=== PATIENT | female | born 1950 | race American Indian/Alaskan Native ===

== ENCOUNTER 2019-04-29 08:58 | Emergency (ER) | payer MEDICARE ==
[2019-04-29 09:35] LABS: Basophils % (Auto) 0.3 % (0.0-1.8); Eosinophils % (Auto) 0.4 % (0.0-4.3); Hematocrit 33.3 % (30.3-42.9); Hemoglobin 10.7 gm/dl (10.1-14.3); Lymphocytes % (Auto) 12.7 % (13.4-35.0); Mean Corpuscular HGB Conc 32 % (30-34); Mean Corpuscular Volume 82 fl (79-97); Monocytes # (Auto) 0.4 K/mm3 (0.0-0.8); Monocytes % (Auto) 5.4 % (0.0-7.3); Platelet Count 308 K/mm3 (140-440); Red Blood Count 4.09 M/mm3 (3.65-5.03); Red Cell Distribution Width 17.1 % (13.2-15.2)
--- NOTE | 2019-04-29 09:40 | Emergency Department Report ---
ED Abdominal Pain HPI - General Chief Complaint: Abdominal Pain Stated Complaint: ABD PAIN/VOMITING Time Seen by Provider: 04/29/19 09:35 Source: patient Mode of arrival: Ambulatory Limitations: No Limitations - History of Present Illness Initial Comments: This is a 69-year-old female who presents to ED complaining of lower pelvic pain to lower abdominal pain started last night. Patient states this morning pain is worse. She describes a sharp localized to the lower knee region. She admits some nausea with no vomiting Patient denies diarrhea, dysuria, fever or vaginal bleeding, chest pain shortness of breath. MD Complaint: abdominal pain Severity scale (0 -10): 9 Quality: stabbing, aching, sharp Improves With: nothing - Related Data Previous Rx's Medication Instructions Recorded Last Taken Type traMADol [Ultram 50 MG tab] 50 mg PO Q6HR PRN #20 tablet 04/29/19 Unknown Rx Allergies Allergy/AdvReac Type Severity Reaction Status Date / Time No Known Allergies Allergy Verified 04/29/19 09:00 ED Review of Systems ROS: Stated complaint: ABD PAIN/VOMITING Other details as noted in HPI Comment: All other systems reviewed and negative ED Past Medical Hx - Past Medical History Previous Medical History?: Yes Hx Hypertension: Yes - Surgical History Past Surgical History?: Yes Additional Surgical History: colon surgery appendectomy - Social History Smoking Status: Never Smoker Substance Use Type: None - Medications Home Medications: Home Medications Medication Instructions Recorded Confirmed Last Taken Type traMADol [Ultram 50 MG tab] 50 mg PO Q6HR PRN #20 tablet 04/29/19 Unknown Rx ED Physical Exam - General Limitations: No Limitations General appearance: alert, in no apparent distress - Head Head exam: Present: atraumatic, normocephalic - Eye Eye exam: Present: normal appearance - ENT ENT exam: Present: mucous membranes moist - Neck Neck exam: Present: normal inspection - Respiratory Respiratory exam: Present: normal lung sounds bilaterally. Absent: respiratory distress - Cardiovascular Cardiovascular Exam: Present: regular rate, normal rhythm. Absent: systolic murmur, diastolic murmur, rubs, gallop - GI/Abdominal GI/Abdominal exam: Present: soft, normal bowel sounds, other (well rounded obese abdomen). Absent: distended, tenderness, guarding, rebound, mass - Extremities Exam Extremities exam: Present: normal inspection - Back Exam Back exam: Present: normal inspection, full ROM. Absent: tenderness, CVA tenderness (R), CVA tenderness (L) - Neurological Exam Neurological exam: Present: alert, oriented X3, normal gait - Psychiatric Psychiatric exam: Present: normal affect, normal mood - Skin Skin exam: Present: warm, dry, intact, normal color. Absent: rash ED Course Vital Signs 04/29/19 04/29/19 04/29/19 09:00 11:35 14:30 Temperature 99.1 F 98.5 F Pulse Rate 113 H 87 82 Respiratory 24 22 16 Rate Blood Pressure 169/96 Blood Pressure 134/80 [Right] O2 Sat by Pulse 100 100 98 Oximetry - Consultations Consultation #1: Patient is laying comfortably in the ED. Patient reports feeling much better. Patient ascending no acute distress. Vomiting is resolved. Ultrasound pending 04/29/19 14:05 ED Medical Decision Making - Lab Data Result diagrams: 04/29/19 09:14 04/29/19 09:14 - Radiology Data Radiology results: report reviewed, image reviewed TECHNIQUE: Routine abdominal and pelvic CT exam performed without contrast. Lack of intravenous contrast limits evaluation of the vascular and solid organs.. All CT scans at this location are performed using CT dose reduction for ALARA by means of automated exposure control. FINDINGS: CT ABDOMEN: Lung Bases: No significant abnormality. Liver: No significant abnormality. Biliary: Gallbladder is surgically absent. Spleen: No significant abnormality. Unenlarged. Pancreas: No significant abnormality. Adrenals: No significant abnormality. Kidneys: No significant abnormality. Lymphatics: No lymphadenopathy. Vasculature: No significant abnormality. Bowel/Peritoneum: Nonobstructive bowel. Sigmoid diverticulosis without mesocolonic fat stranding. No free air. No free fluid. The appendix is surgically absent. CT PELVIC: : There is a complex pelvic mass think is most likely arising from the right ovary based on the position of the ovarian vessels. There appear to be both cystic and solid components. This measures 22 x 12.5 cm in greatest axial dimension. Lymphatics: No lymphadenopathy. Osseous Structures: No aggressive appearing osseous lesions. Additional Findings: None IMPRESSION: 1. Large midline complex pelvic mass there appears to be potentially arising from the right ovary. This would raise concern for a primary ovarian neoplasm. I would recommend further characterization with pelvic ultrasound to evaluate for any internal solid components and internal vascularity. 2. Sigmoid diverticulosis without evidence of diverticulitis. Signer Name: Ramesh Avelar MD Signed: 04/29/2019 11:02 AM Workstation Name: [id number] Transcribed By: RADHA Dictated By: Ramesh Avelar MD Electronically Authenticated By: Ramesh Avelar MD Signed Date/Time: 04/29/19 1102 - Medical Decision Making 69-year-old female presents to ED with an ovarian mass causing low pelvic pain. Patient received a liter of fluid, morphine, nausea medications while she was in in the ED. CBC, CMP, urinalysis is obtained. All labs within normal limits no signs of leukocytosis kidney functions are normal. CT scan of the abdomen shows a mass in the pelvic region and ultrasound was recommended. Ultrasound obtained. Ultrasound shows 19 cm ovarian mass, see report above. Patient reports feeling better and is sitting comfortably in the ED bed. Discussed the patient to follow-up with her [facility] doctor. Patient states she does have a [employer] doctor. I have also given patient's referral for [facility] [facility] doctor as well. Patient states understanding instructions and will follow-up. Critical care attestation.: If time is entered above; I have spent that time in minutes in the direct care of this critically ill patient, excluding procedure time. ED Disposition Clinical Impression: Ovarian mass Disposition: DC-01 TO HOME OR SELFCARE Is pt being admited?: No Does the pt Need Aspirin: No Condition: Stable Instructions: Abdominal Pain (ED), Ovarian Cyst (ED) Additional Instructions: Make sure to follow up with the [facility] as discussed. You have also been given a referral for an oncologist please follow up with them. Take all your medications as you've been prescribed. If you have any worsening symptoms or develop new symptoms please return to ED immediately. Prescriptions: traMADol [Ultram 50 MG tab] 50 mg PO Q6HR PRN #20 tablet PRN Reason: Pain Referrals: GILL JENKINS MD [Primary Care Provider] - 3-5 Days [facility] [Provider Group] - 3-5 Days [facility] [Provider Group] - 3-5 Days Forms: Accompanied Note, Work/School Release Form(ED) Time of Disposition: 15:31
[2019-04-29 09:59] LABS: Alanine Aminotransferase 7 units/L (7-56); BUN/Creatinine Ratio 12; Blood Urea Nitrogen 12 mg/dL (7-17); Calcium 9.1 mg/dL (8.4-10.2); Hemolysis Index 7
[2019-04-29] MEDS ORDERED: PEPCID IV ONE (10:07)
[2019-04-29] MEDS ORDERED: ZOFRAN IV ONE (10:07)
[2019-04-29 10:12] LABS: Bacteria,Urine 1+ /HPF (Negative); Bilirubin,Urine NEG (Negative); Blood,Urine NEG (Negative); Color,Urine Amber (Yellow); Mucus,Urine 1+ /HPF
--- NOTE | 2019-04-29 11:07 | Cat Scan Report ---
CT ABDOMEN AND PELVIS WITHOUT CONTRAST HISTORY: Lower abdominal pain with nausea and vomiting. COMPARISON: None TECHNIQUE: Routine abdominal and pelvic CT exam performed without contrast. Lack of intravenous cont rast limits evaluation of the vascular and solid organs.. All CT scans at this location are performed using CT dose reduction for ALARA by means of automated exposure control. FINDINGS: CT ABDOMEN: Lung Bases: No significant abnormality. Liver: No significant abnormality. Biliary: Gallbladder is surgically absent. Spleen: No significant abnormality. Unenlarged. Pancreas: No significant abnormality. Adrenals: No significant abnormality. Kidneys: No significant abnormality. Lymphatics: No lymphadenopathy. Vasculature: No significant abnormality. Bowel/Peritoneum: Nonobstructive bowel. Sigmoid diverticulosis without mesocolonic fat stranding. No free air. No free fluid. The appendix is surgically absent. CT PELVIC: : There is a complex pelvic mass think is most likely arising from the right ovary based on the pos ition of the ovarian vessels. There appear to be both cystic and solid components. This measures 22 x 12.5 cm in greatest axial dimension. Lymphatics: No lymphadenopathy. Osseous Structures: No aggressive appearing osseous lesions. Additional Findings: None IMPRESSION: 1. Large midline complex pelvic mass there appears to be potentially arising from the right ovary. Th is would raise concern for a primary ovarian neoplasm. I would recommend further characterization wit h pelvic ultrasound to evaluate for any internal solid components and internal vascularity. 2. Sigmoid diverticulosis without evidence of diverticulitis. Signer Name: Ramesh Avelar MD Signed: 04/29/2019 11:02 AM Workstation Name: [id number]
[2019-04-29] MEDS ORDERED: MORPHINE IV ONE (11:26)
[2019-04-29 15:55] VITALS: BP 157/86
--- NOTE | 2019-05-01 08:55 | Ultrasound Report ---
Pelvic ultrasound INDICATION: Lower abdominal pain, nausea, vomiting, large pelvic mass on CT today COMPARISON: CT abdomen and pelvis today Transabdominal and endovaginal studies were performed. Uterus is been removed. The large complex mass in the midline of the pelvis seen on CT is identified. The size of this mass makes measurement difficult but appears to measure approximately 19 cm in katherine th. A mixture of echogenicity is seen throughout this complex mass with cystic and solid-appearing co mponents. Only a small amount of blood flow is seen in some areas. No normal ovary is identified. No free fluid is seen. IMPRESSION: The large pelvic mass seen on CT remains likely a right ovarian mass but this cannot be c onfirmed sonographically. Normal ovaries cannot be identified to assist in that determination. This m ass is of significant concern for ovarian carcinoma though could be a large cystadenoma or other grace gn mass. Ultimately surgical intervention would be needed in further determination. Signer Name: Luis Berger MD Signed: 04/29/2019 1:25 PM Workstation Name: [id number]
== END 2019-04-29 15:58 | disposition home or self-care (01) ==
LOC: ED 08:58
DX: N83.209 Unspecified ovarian cyst, unspecified side (principal); I10 Essential (primary) hypertension; Z90.49 Acquired absence of other specified parts of digestive tract; Z79.899 Other long term (current) drug therapy
CPT/HCPCS: 36415; 74176; 76830; 76856; 80053; 81001; 85025; 93005; 93010; 96374; 96375; 99284; J2270; J2405

== ENCOUNTER 2020-01-08 10:18 | Emergency (ER) | payer MEDICARE ==
[2020-01-08] MEDS ORDERED: cloNIDine 0.2 MG TAB PO ONE (10:58)
[2020-01-08] MEDS ORDERED: HYDROcodone/ACETAMINOPHEN 5-325 MG TAB PO ONE (10:58)
--- NOTE | 2020-01-08 11:28 | XRay Report ---
CERVICAL SPINE 4 VIEWS INDICATION: Acute neck pain. COMPARISON: No relevant prior imaging study available. FINDINGS: VERTEBRAE: No acute fracture. Normal alignment. DISC SPACES: Mild discogenic degenerative changes are noted at C6-C7. No additional significant abnor mality. FACET JOINTS: No significant abnormality. SOFT TISSUES: No significant abnormality. ADDITIONAL FINDINGS: Surgical clips are seen along the base of the neck to the left of midline. IMPRESSION: 1. No acute findings. 2. Mild cervical spondylosis. Signer Name: Doron Bean MD Signed: 01/08/2020 11:24 AM Workstation Name: [id number]
--- NOTE | 2020-01-08 12:04 | Emergency Department Report ---
ED Neck Pain HPI Chief Complaint: Neck Pain/Injury Stated Complaint: NECK PAIN Time Seen by Provider: 01/08/20 10:58 Duration: 3 Days Neck Pain Location: Posterior Neck, Lateral Neck Severity: moderate Mechanism: Unsure (Patient states that she woke up with pain is having difficulty moving her head from side to side) Symptoms: Yes Pain with Movement, No Radiation to Left Upper Ext, No Radiation to Right Upper Ext, No Numbness, No Weakness, No Previous History Other History: Patient also states she did not take her blood pressure medicines this morning. She denies any shortness of breath chest pain decreased ability to move her arms or legs or any difficulty with speaking ED Review of Systems ROS: Stated complaint: NECK PAIN Other details as noted in HPI Comment: All other systems reviewed and negative ED Past Medical Hx - Past Medical History Hx Hypertension: Yes - Surgical History Hx Cholecystectomy: Yes Additional Surgical History: colon surgery appendectomy total hysterectomy - Social History Smoking Status: Never Smoker Substance Use Type: None - Medications Home Medications: Home Medications Medication Instructions Recorded Confirmed Last Taken Type traMADoL [Ultram 50 MG tab] 50 mg PO Q6HR PRN #20 tablet 04/29/19 Unknown Rx HYDROcodone/APAP 5-325 [[place] 1 each PO Q6HR PRN #10 tablet 01/08/20 Unknown Rx 5/325] Ibuprofen [Motrin 600 MG tab] 600 mg PO Q8H PRN #14 tablet 01/08/20 Unknown Rx methOCARBAMOL [Robaxin TAB] 500 mg PO Q6H PRN #14 tablet 01/08/20 Unknown Rx Neck Pain Exam - Exam General: Vital signs noted. No distress. Alert and acting appropriately. HEENT: No Facial Pain, No Scalp Tenderness, No Contusion, No Abrasion, No Laceration Neck Pain: Yes Midline Tenderness, Yes Right Paraspinal Tenderness, Yes Left Paraspinal Tenderness, Yes Pain with Rotation Right, Yes Pain with Rotation Left, No Right Trapezius Tenderness, No Left Trapezius Tenderness, No Pain with Extension, No Pain with Flexion, No pain with R Lateral Flexion, No Pain with L Lateral Flexion Chest: Yes Clear Lung Sounds, No Pain with Respirations Heart: Yes Regular, No Murmur Back: No Thoracic Tenderness, No Lumbar Tenderness Neuro: No Numbness, No Weakness, No Normal Reflexes, No Radicular Deficits ED Course Vital Signs 01/08/20 01/08/20 01/08/20 10:23 11:00 11:15 Temperature 97.6 F Pulse Rate 92 H 79 Respiratory 18 16 Rate Blood Pressure 231/99 187/86 180/80 O2 Sat by Pulse 98 98 Oximetry ED Medical Decision Making - Radiology Data CERVICAL SPINE 4 VIEWS INDICATION: Acute neck pain. COMPARISON: No relevant prior imaging study available. FINDINGS: VERTEBRAE: No acute fracture. Normal alignment. DISC SPACES: Mild discogenic degenerative changes are noted at C6-C7. No additional significant abnormality. FACET JOINTS: No significant abnormality. SOFT TISSUES: No significant abnormality. ADDITIONAL FINDINGS: Surgical clips are seen along the base of the neck to the left of midline. IMPRESSION: 1. No acute findings. 2. Mild cervical spondylosis. Signer Name: Doron Bean MD Signed: 01/08/2020 11:24 AM Workstation Name: [id number] - Medical Decision Making Regarding the patient's blood pressure the patient states she did not take her medicines this morning and she also has a great deal of pain. Patient was given Catapres and her blood pressure is improving. Patient can continue with her normal regimen at home. Patient was given medication for symptom relief. X- rays do show some mild arthritic changes. Patient likely with torticollis secondary to arthritis. Patient will be discharged home with medication for symptomatic relief. Critical care attestation.: If time is entered above; I have spent that time in minutes in the direct care of this critically ill patient, excluding procedure time. ED Disposition Clinical Impression: Torticollis, acute, Hypertensive urgency Disposition: DC-01 TO HOME OR SELFCARE Is pt being admited?: No Does the pt Need Aspirin: No Condition: Stable Instructions: Hypertension (ED), Spasmodic Torticollis (ED) Referrals: ROSANNE FANG MD [Primary Care Provider] - 3-5 Days Time of Disposition: 12:06
[2020-01-08 12:07] VITALS: BP 171/81
== END 2020-01-08 12:13 | disposition home or self-care (01) ==
LOC: ED 10:18
DX: M43.6 Torticollis (principal); I16.0 Hypertensive urgency; I10 Essential (primary) hypertension
CPT/HCPCS: 72040; 99283

== ENCOUNTER 2021-01-25 21:26 | Emergency (ER) | payer MEDICARE ==
[2021-01-25] MEDS ORDERED: ASPIRIN 81 MG TAB CHEW PO ONE (22:41)
--- NOTE | 2021-01-25 22:44 | Event Note ---
ED Screening Note Date of service: 01/25/21 Time: 22:42 ED Screening Note: 71-year-old female patient with history of hypertension and ovarian cancer (in remission) presents to the emergency department with complaints of nontraumatic right-sided neck pain radiating down her right upper extremity starting today. No history of similar symptoms. No preceding fall or injury. No known history of coronary artery disease. General: Awake, appropriately interactive. Appears anxious and uncomfortable. Neck: Supple. Full range of motion intact. Cardiovascular: Regular rate and rhythm. Normal peripheral perfusion. Pulmonary: Patient is hyperventilating. Lungs clear to auscultation. No resp iratory distress. Patient is speaking normally without use of accessory muscles. Skin: No apparent rashes or lesions. Neurological: No facial asymmetry. Speech is clear. Follows commands. Patient is alert and oriented. Musculoskeletal: Moves all four extremities spontaneously with normal range of motion. Psych: Cooperative. Appropriate mood and affect. Cardiac work-up initiated. Patient reports history of cancer, although her vital signs are stable; decision to pursue further venous thromboembolism work- up deferred to additional ED providers. I have greeted and performed a focused rapid initial assessment of this patient. A comprehensive ED assessment and evaluation of the patient, analysis of all test results, and completion of the medical decision-making process will be conducted by additional ED providers. This initial assessment/diagnostic orders/clinical plan/treatment(s) is/are subject to change based on patients health status, clinical progression and re-assessment. Further treatment and workup at subsequent clinical provider's discretion. Patient/guardian urged not to elope from the ED as their condition may be serious if not clinically assessed and managed.
[2021-01-25 23:14] LABS: Basophils # (Auto) 0.1 K/mm3 (0.0-0.1); Basophils % (Auto) 0.6 % (0.0-1.8); Eosinophils # (Auto) 0.2 K/mm3 (0.0-0.4); Eosinophils % (Auto) 1.7 % (0.0-4.3); Hematocrit 43.2 % (30.3-42.9); Hemoglobin 14.3 gm/dl (10.1-14.3); Lymphocytes # (Auto) 1.1 K/mm3 (1.2-5.4); Lymphocytes % (Auto) 11.7 % (13.4-35.0); Mean Corpuscular HGB Conc 33 % (30-34); Mean Corpuscular Volume 86 fl (79-97); Monocytes # (Auto) 0.6 K/mm3 (0.0-0.8); Monocytes % (Auto) 6.8 % (0.0-7.3); Platelet Count 264 K/mm3 (140-440); Red Cell Distribution Width 14.8 % (13.2-15.2)
[2021-01-25 23:25] LABS: INR 0.92 (0.87-1.13)
--- NOTE | 2021-01-25 23:25 | XRay Report ---
CHEST 2 VIEWS INDICATION: SOB. COMPARISON: None FINDINGS: SUPPORT DEVICES: None. HEART: Within normal limits. LUNGS/PLEURA: Mild hazy medial right basilar airspace disease with otherwise clear lungs. No pneumot horax. ADDITIONAL FINDINGS: None. IMPRESSION: 1. Pulmonary findings as above. Signer Name: Tarun Cunningham MD Signed: 01/25/2021 11:21 PM Workstation Name: [id number]
[2021-01-25 23:26] LABS: Partial Thromboplastin Time 29.5 Sec. (24.2-36.6)
[2021-01-25 23:37] LABS: Alanine Aminotransferase 11 units/L (7-56); Albumin 4.7 g/dL (3.9-5); BUN/Creatinine Ratio 22; Blood Urea Nitrogen 20 mg/dL (7-17); Calcium 10.1 mg/dL (8.4-10.2); Hemolysis Index 9
--- NOTE | 2021-01-26 02:07 | Emergency Department Report ---
Upper Extremity - HPI Chief Complaint: Shoulder Injury Stated Complaint: RT SIDE PAIN/NECK/AND SWELLING Time Seen by Provider: 01/26/21 01:54 Upper Extremity: Right Shoulder, Right Arm Occurred When: 1 Day Mechanism: Other (No trauma reported) Severity: severe Symptoms: Yes Pain with Movement, Yes Limited Range of Movement, Yes Swelling, No Deformity, No Numbness, No Weakness, No Bruising/Ecchymosis, No Laceration or Abrasion Other History: Patient is a 71-year-old female that presents emergency room with complaints of right arm pain, right shoulder pain and right neck pain. Patient states the pain is a 10 out of 10. Patient dates the pain is worse with movement and better with rest. Patient states she is having swelling to the right arm. Patient states the pain is also worse with palpation. Patient denie s fever and chills. Patient denies chest pain. Patient denies shortness of breath. Patient denies recent travel. Patient denies recent international travel. Patient denies exposure to the novel coronavirus. Patient denies sick contacts. Patient denies fever and chills. Patient denies cough. Patient denies diarrhea. Patient denies coming in contact with anybody with symptoms of the novel coronavirus. ED Review of Systems ROS: Stated complaint: RT SIDE PAIN/NECK/AND SWELLING Other details as noted in HPI Constitutional: denies: chills, fever Eyes: denies: eye pain, eye discharge, vision change ENT: denies: ear pain, throat pain Respiratory: denies: cough, shortness of breath, wheezing Cardiovascular: denies: chest pain, palpitations Endocrine: no symptoms reported Gastrointestinal: denies: abdominal pain, nausea, diarrhea Genitourinary: denies: urgency, dysuria, discharge Musculoskeletal: as per HPI. denies: back pain, joint swelling, arthralgia Skin: denies: rash, lesions Neurological: denies: headache, weakness, paresthesias Psychiatric: denies: anxiety, depression Hematological/Lymphatic: denies: easy bleeding, easy bruising ED Past Medical Hx - Past Medical History Previous Medical History?: Yes Hx Hypertension: Yes Hx of Cancer: Yes (Ovarian) Hx Arthritis: Yes - Surgical History Past Surgical History?: Yes Hx Cholecystectomy: Yes Hx Appendectomy: Yes Additional Surgical History: colon surgery - Family History Family history: no significant - Social History Smoking Status: Never Smoker Substance Use Type: Alcohol - Medications Home Medications: Home Medications Medication Instructions Recorded Confirmed Last Taken Type traMADoL [Ultram 50 MG tab] 50 mg PO Q6HR PRN #20 tablet 04/29/19 Unknown Rx Ibuprofen [Motrin 600 MG tab] 600 mg PO Q8H PRN #14 tablet 01/08/20 Unknown Rx methOCARBAMOL [Robaxin TAB] 500 mg PO Q6H PRN #14 tablet 01/08/20 Unknown Rx HYDROcodone/APAP 5-325 [[place] 1 each PO Q6HR PRN #10 tablet 01/26/21 Unknown Rx 5-325 mg TAB] Upper Extremity Exam - Exam General: Vital signs noted. No distress. Alert and acting appropriately. Head and Torso: No HEENT Abnormality, No Neck Tenderness, No Chest/Lungs Abnormality, No Abdominal Tenderness, No Back Tenderness Shoulder Exam: Yes Shoulder Tenderness (Tenderness over the humerus.), Yes AC Joint Tenderness, No Clavicle Tenderness, No Normal Range of Motion in Shoulder, No Shoulder Deformity Arm Exam: No Arm/Humerus Tenderness, No Arm Deformity Elbow: No Elbow Tenderness, No Normal Range of Motion in Elbow, No Elbow Deformity Forearm: No Forearm Tenderness, No Forearm Deformity, No Pain with Pronation, No Pain with Supination Wrist: Yes Normal ROM in Wrist, No Wrist Tenderness, No Wrist Deformity, No Snuffbox Tenderness, No Pain with Axial Thumb Compression Hand: Yes Normal ROM in Digit(s), No Hand Tenderness, No Hand Deformity, No Digit Tenderness, No Digit(s) Deformity, No Tendon Dysfunction CMS Exam: No Broken Skin, No Normal Distal Pulses, No Normal Capillary Refill, No Normal Distal Sensation ED Course Vital Signs 01/25/21 22:37 Temperature 97.5 F L Pulse Rate 86 Respiratory 18 Rate Blood Pressure 177/82 O2 Sat by Pulse 99 Oximetry - Reevaluation(s) Reevaluation #1: Patient states the pain is much better. Patient states she is ready to go. I discussed all results and clinical findings with patient. I discussed plan of care with patient. Patient agrees with plan of care. Patient is stable for dis charge. Patient will be discharged home. Patient given discharge instructions. Patient voiced understanding of discharge instructions. 01/26/21 04:20 ED Medical Decision Making - Lab Data Result diagrams: 01/25/21 22:49 01/25/21 22:49 - EKG Data -: EKG Interpreted by Me EKG shows normal: sinus rhythm, axis, intervals, QRS complexes, ST-T waves Rate: normal - Radiology Data Radiology results: report reviewed CHEST 2 VIEWS INDICATION: SOB. COMPARISON: None FINDINGS: SUPPORT DEVICES: None. HEART: Within normal limits. LUNGS/PLEURA: Mild hazy medial right basilar airspace disease with otherwise clear lungs. No pneumothorax. ADDITIONAL FINDINGS: None. IMPRESSION: 1. Pulmonary findings as above. Right shoulder-3 views INDICATION: pain.. COMPARISON: None. IMPRESSION: No acute osseous abnormality. Soft tissues are normal. Normal alignment. Moderate glenohumeral and acromioclavicular degenerative arthrosis with narrowing of the acromiohumeral interval suggesting rotator cuff insufficiency - Medical Decision Making Patient is a 71-year-old female who presents emergency room with complaints of right shoulder pain and right arm swelling. Patient pain is worsening. Patient's pain is severe. Patient had labs done which were essentially unremarkable. Patient also had a D-dimer to rule out the possibility of a upper extremity DVT and it was negative. Patient's D-dimer is normal. Patient's labs are essentially unremarkable. Patient CBC was normal. Patient's chemistry is normal. Patient had a chest x-ray which was negative for acute findings. Patient had a shoulder x-ray which was positive for osteoarthritis and no acute fractures. I personally reviewed both of the x-rays. Patient EKG which was negative for acute findings. Patient's EKG showed no ST segment elevation. I personally reviewed the EKG. Patient given Dilaudid and Toradol IV and the patient responded well. Patient's pain was decreased. Patient discharged home. Patient stable for discharge. Patient given discharge instructions. - Differential Diagnosis Osteoarthritis, shoulder pain, shoulder sprain, arm swelling, DVT Critical care attestation.: If time is entered above; I have spent that time in minutes in the direct care of this critically ill patient, excluding procedure time. ED Disposition Clinical Impression: Swelling of right upper extremity Right shoulder pain Qualifiers: Chronicity: acute Qualified Code(s): M25.511 - Pain in right shoulder Sprain of right shoulder Qualifiers: Encounter type: initial encounter Shoulder sprain type: unspecified sprain Qual ified Code(s): S43.401A - Unspecified sprain of right shoulder joint, initial encounter Disposition: TO HOME OR SELFCARE Is pt being admited?: No Does the pt Need Aspirin: No Condition: Stable Instructions: Shoulder Pain, How to Use Cold Therapy, [id number], Shoulder Sprain, Shoulder Pain, [id number], Elastic Bandage and RICE Therapy, Adhesive Capsulitis Additional Instructions: Patient to follow-up with primary care in 2 to 3 days. Patient to follow-up with orthopedist in 2 to 3 days. Patient to rest. Patient to increase water. Patient to avoid strenuous exercise or heavy lifting until cleared by orthopedist and primary care. Patient to take Tylenol or ibuprofen as needed for pain. Patient to take meds as directed. Patient to return to the ER if condition worsens, changes or new symptoms arise. Prescriptions: HYDROcodone/APAP 5-325 [[place] 5-325 mg TAB] 1 each PO Q6HR PRN #10 tablet PRN Reason: Pain Referrals: MARTÍNEZ MENENDEZ MD [Primary Care Provider] - 2-3 Days ULISES PRESLEY MD [Staff Physician] - 3-5 Days Time of Disposition: 04:20
--- NOTE | 2021-01-26 02:39 | XRay Report ---
Right shoulder-3 views INDICATION: pain.. COMPARISON: None. IMPRESSION: No acute osseous abnormality. Soft tissues are normal. Normal alignment. Moderate gle nohumeral and acromioclavicular degenerative arthrosis with narrowing of the acromiohumeral interval suggesting rotator cuff insufficiency Signer Name: Tarun Cunningham MD Signed: 01/26/2021 2:34 AM Workstation Name: [id number]
[2021-01-26] MEDS ORDERED: HYDROmorphone 1 MG/1 ML INJ IV ONE (03:26)
[2021-01-26] MEDS ORDERED: KETOROLAC 30 MG/1 ML INJ IV ONE (03:26)
[2021-01-26 05:23] VITALS: BP 158/80
--- NOTE | 2021-01-26 09:38 | Electrocardiograph Report ---
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
== END 2021-01-26 04:30 | disposition home or self-care (01) ==
LOC: ED 21:26
DX: S43.401A Unspecified sprain of right shoulder joint, initial encounter (principal); M79.89 Other specified soft tissue disorders; I10 Essential (primary) hypertension; M19.90 Unspecified osteoarthritis, unspecified site; Z79.899 Other long term (current) drug therapy; Z90.49 Acquired absence of other specified parts of digestive tract; X58.XXXA Exposure to other specified factors, initial encounter; Y93.89 Activity, other specified; Y92.89 Other specified places as the place of occurrence of the external cause; Y99.8 Other external cause status
CPT/HCPCS: 36415; 71046; 73030; 80053; 83735; 84484; 85025; 85379; 85610; 85730; 93005; 96374; 96375; 99284; J1170; J1885

== ENCOUNTER 2022-01-03 08:42 | Emergency (ER) | payer MEDICARE ==
[2022-01-03] MEDS ORDERED: SODIUM CHLORIDE 0.9% 1000 ML 1,000 ML IV ONE (08:59)
[2022-01-03] MEDS ORDERED: methylPREDNISolone Sod Succinate 125 MG/2 ML INJ IV ONE (09:00)
[2022-01-03 09:36] LABS: Basophils % (Auto) 0.4 % (0.0-1.8); Eosinophils % (Auto) 0.4 % (0.0-4.3); Hematocrit 42.7 % (30.3-42.9); Hemoglobin 13.7 gm/dl (10.1-14.3); Lymphocytes % (Auto) 12.5 % (13.4-35.0); Mean Corpuscular HGB Conc 32 % (30-34); Mean Corpuscular Volume 86 fl (79-97); Monocytes # (Auto) 0.7 K/mm3 (0.0-0.8); Monocytes % (Auto) 9.1 % (0.0-7.3); Platelet Count 277 K/mm3 (140-440); Red Blood Count 4.98 M/mm3 (3.65-5.03); Red Cell Distribution Width 13.6 % (13.2-15.2)
[2022-01-03 09:57] LABS: Alanine Aminotransferase 11 units/L (7-56); Albumin 4.3 g/dL (3.9-5); BUN/Creatinine Ratio 13; Blood Urea Nitrogen 12 mg/dL (7-17); Calcium 10.2 mg/dL (8.4-10.2); Hemolysis Index 6
[2022-01-03] MEDS ORDERED: AMPICILLIN/SULBACTA 3GM/100ML 3 GM/100 ML BAG IV ONE (10:00)
[2022-01-03] MEDS ORDERED: HYDROcodone/ACETAMINOPHEN 5-325 MG TAB PO NR (10:00)
[2022-01-03] MEDS ORDERED: POTASSIUM CHLORIDE ER 20 MEQ TAB PO ONE (10:04)
--- NOTE | 2022-01-03 10:06 | Emergency Department Report ---
- General Chief complaint: Skin/Abscess/Foreign Body Stated complaint: FACE SWOLLEN Time Seen by Provider: 01/03/22 08:59 Source: patient Mode of arrival: Ambulatory Limitations: No Limitations - History of Present Illness Initial comments: Patient is a pleasant 71-year-old female that looks much younger than stated age. Patient comes in complaining of right-sided facial swelling. She states that it started yesterday. She denies any trauma. Her eye is not involved. She is talking on her cell phone during most of her exam and ER visit. No trismus. No drooling. No abscess noted of the gingiva nor the pharynx. She does endorse right maxillary dental pain. She has not seen a dentist in several years. Patient is taking p.o. without difficulty. Patient ambulatory, nonill, nontoxic and with no acute distress on arrival to the ER MD complaint: other -: Sudden, days(s) Tetanus Up to Date: yes Severity: mild Quality: aching Consistency: constant Improves with: none Worsens with: none Context: none Associated symptoms: denies other symptoms Treatments Prior to Arrival: none - Related Data Previous Rx's Medication Instructions Recorded Last Taken Type Chlorhexidine Mouthwash [Peridex] 15 ml MM BID #1 bottle 01/03/22 Unknown Rx Clindamycin [Clindamycin CAP] 300 mg PO Q8H #30 cap 01/03/22 Unknown Rx Allergies Allergy/AdvReac Type Severity Reaction Status Date / Time No Known Allergies Allergy Verified 04/29/19 09:00 Abscess Boil HPI - HPI Chief Complaint: Skin/Abscess/Foreign Body Stated Complaint: FACE SWOLLEN Time Seen by Provider: 01/03/22 08:59 Home Medications: Previous Rx's Medication Instructions Recorded Last Taken Type Chlorhexidine Mouthwash [Peridex] 15 ml MM BID #1 bottle 01/03/22 Unknown Rx Clindamycin [Clindamycin CAP] 300 mg PO Q8H #30 cap 01/03/22 Unknown Rx Allergies/Adverse Reactions: Allergies Allergy/AdvReac Type Severity Reaction Status Date / Time No Known Allergies Allergy Verified 04/29/19 09:00 ED Review of Systems ROS: Stated complaint: FACE SWOLLEN Other details as noted in HPI Comment: All other systems reviewed and negative ED Past Medical Hx - Past Medical History Previous Medical History?: Yes Hx Hypertension: Yes Hx Arthritis: Yes - Surgical History Past Surgical History?: Yes Hx Cholecystectomy: Yes Hx Appendectomy: Yes Additional Surgical History: colon surgery - Family History Family history: no significant - Social History Smoking Status: Never Smoker Substance Use Type: Alcohol - Medications Home Medications: Home Medications Medication Instructions Recorded Confirmed Last Taken Type Chlorhexidine Mouthwash [Peridex] 15 ml MM BID #1 bottle 01/03/22 Unknown Rx Clindamycin [Clindamycin CAP] 300 mg PO Q8H #30 cap 01/03/22 Unknown Rx ED Physical Exam - General Limitations: No Limitations General appearance: alert, in no apparent distress - Head Head exam: Present: atraumatic, normocephalic - Eye Eye exam: Present: normal appearance - ENT ENT exam: Present: mucous membranes moist - Neck Neck exam: Present: normal inspection - Respiratory Respiratory exam: Present: normal lung sounds bilaterally. Absent: respiratory distress - Cardiovascular Cardiovascular Exam: Present: regular rate, normal rhythm. Absent: systolic murmur, diastolic murmur, rubs, gallop - GI/Abdominal GI/Abdominal exam: Present: soft, normal bowel sounds - Extremities Exam Extremities exam: Present: normal inspection - Back Exam Back exam: Present: normal inspection - Neurological Exam Neurological exam: Present: alert, oriented X3 - Psychiatric Psychiatric exam: Present: normal affect, normal mood - Skin Skin exam: Present: warm, dry, intact, normal color, other. Absent: rash - Expanded Skin Exam Expanded 1 - area of swelling ED Course Vital Signs 01/03/22 01/03/22 08:49 10:37 Temperature 99.2 F 98.7 F Pulse Rate 110 H 88 Respiratory 18 20 Rate Blood Pressure 142/89 185/68 [Right] O2 Sat by Pulse 97 98 Oximetry ED Medical Decision Making - Lab Data Result diagrams: 01/03/22 09:11 01/03/22 09:11 - Medical Decision Making Labs 01/03/22 01/03/22 01/03/22 09:11 09:11 09:11 WBC 8.2 RBC 4.98 Hgb 13.7 Hct 42.7 MCV 86 MCH 28 MCHC 32 RDW 13.6 Plt Count 277 Lymph % (Auto) 12.5 L Gilliam % (Auto) 9.1 H Eos % (Auto) 0.4 Baso % (Auto) 0.4 Lymph # (Auto) 1.0 L Gilliam # (Auto) 0.7 Eos # (Auto) 0.0 Baso # (Auto) 0.0 Seg Neutrophils % 77.6 H Seg Neutrophils # 6.4 Sodium 139 Potassium 3.4 L Chloride 97.3 L Carbon Dioxide 28 Anion Gap 17 BUN 12 Creatinine 0.9 Estimated GFR > 60 BUN/Creatinine Ratio 13 Glucose 133 H Lactic Acid 1.50 Calcium 10.2 Total Bilirubin 0.70 AST 13 ALT 11 Alkaline Phosphatase 48 Total Protein 7.0 Albumin 4.3 Albumin/Globulin Ratio 1.6 Patient has no visible abscess. She does have caries which are diffuse including her right upper molars. She has receding gingiva but no abscess. Gums are red. Uvula midline with no abscess taking po felt difficulty no trismus controlling secretions labs noted lactate normal NS 1L/clinda IV/ solumedrol IV Patient being discharged home with discharge plan of care including diet, activity, meds and follow-up. She understands that she needs to see a dentist for definitive care. She has been given a list of referrals. Vital Signs 01/03/22 01/03/22 08:49 10:37 Temperature 99.2 F 98.7 F Pulse Rate 110 H 88 Respiratory 18 20 Rate Blood Pressure 142/89 185/68 [Right] O2 Sat by Pulse 97 98 Oximetry - Differential Diagnosis dental abscess Critical care attestation.: If time is entered above; I have spent that time in minutes in the direct care of this critically ill patient, excluding procedure time. ED Disposition Clinical Impression: Pain, dental, Facial swelling Disposition: HOME / SELF CARE / HOMELESS Is pt being admited?: No Does the pt Need Aspirin: No Condition: Stable Instructions: Skin Abscess, [id number] Additional Instructions: meds as ordered today Please note to take clindamycin after you have eaten for it does cause GI upset Motrin or Tylenol for pain It is imperative that you call and make a dental appointment. When you have completed the antibiotics they will see you and treat your likely dental disease which is causing this abscess I have also given you referral to primary care below Prescriptions: Clindamycin [Clindamycin CAP] 300 mg PO Q8H #30 cap Chlorhexidine Mouthwash [Peridex] 15 ml MM BID #1 bottle Referrals: DALILA NOYOLA NP [Primary Care Provider] - 3-5 Days LARISA BOLIVAR MD [Staff Physician] - 3-5 Days [facility] [Outside] - 3-5 Days Time of Disposition: 10:06
[2022-01-03 10:42] VITALS: BP 185/68
== END 2022-01-03 10:41 | disposition home or self-care (01) ==
LOC: ED 08:42
DX: K08.89 Other specified disorders of teeth and supporting structures (principal); R22.0 Localized swelling, mass and lump, head; I10 Essential (primary) hypertension; M19.90 Unspecified osteoarthritis, unspecified site; Z90.49 Acquired absence of other specified parts of digestive tract; Z79.899 Other long term (current) drug therapy
CPT/HCPCS: 36415; 80053; 82140; 85025; 96361; 96374; 99283; J0295; J2930; J7030; Q0162

== ENCOUNTER 2022-05-10 08:37 | Emergency (ER) | payer MEDICARE ==
--- NOTE | 2022-05-10 09:26 | XRay Report ---
CHEST PA AND LATERAL VIEWS INDICATION: Chest Pain. COMPARISON: 01/25/2021 FINDINGS: Support devices: None. Heart: Within normal limits. Lungs/Pleura: Low lung volumes with mild atelectatic changes in the bases, left greater than right. N o pleural abnormality. IMPRESSION: 1. Low lung volumes with presumed atelectatic changes in the bases. Signer Name: Morgan Rivas MD Signed: 05/10/2022 9:22 AM Workstation Name: [id number]
[2022-05-10 09:29] LABS: Basophils % (Auto) 0.1 % (0.0-1.8); Eosinophils % (Auto) 0.3 % (0.0-4.3); Hematocrit 39.9 % (30.3-42.9); Hemoglobin 13.1 gm/dl (10.1-14.3); Lymphocytes # (Auto) 1.1 K/mm3 (1.2-5.4); Mean Corpuscular HGB Conc 33 % (30-34); Mean Corpuscular Volume 85 fl (79-97); Monocytes # (Auto) 1.2 K/mm3 (0.0-0.8); Monocytes % (Auto) 13.7 % (0.0-7.3); Platelet Count 291 K/mm3 (140-440); Red Cell Distribution Width 13.9 % (13.2-15.2)
[2022-05-10 09:54] LABS: Alanine Aminotransferase 18 units/L (7-56); Albumin 4.4 g/dL (3.9-5); BUN/Creatinine Ratio 19; Blood Urea Nitrogen 17 mg/dL (7-17); Calcium 9.7 mg/dL (8.4-10.2); Hemolysis Index 5
[2022-05-10] MEDS ORDERED: dexAMETHasone 20 MG/5 ML VIAL IV ONE (11:07)
[2022-05-10] MEDS ORDERED: diazePAM 10 MG/2 ML SYRINGE IV ONE (11:07)
--- NOTE | 2022-05-10 15:02 | Emergency Department Report ---
ED General Adult HPI - General Chief complaint: Chest Pain Stated complaint: CHEST PAIN Time Seen by Provider: 05/10/22 09:18 Source: patient Mode of arrival: Ambulatory Limitations: No Limitations - History of Present Illness Initial comments: Patient is a 72-year-old female presenting to ED with complaint of pain in her upper and lower back, chest, right shoulder for the past several days. She also reports mild dyspnea. Denies history of CAD, CHF. She reports no recent injuries. No fever or chills. Severity scale (0 -10): 5 - Related Data Previous Rx's Medication Instructions Recorded Last Taken Type Chlorhexidine Mouthwash [Peridex] 15 ml MM BID #1 bottle 01/03/22 Unknown Rx Clindamycin [Clindamycin CAP] 300 mg PO Q8H #30 cap 01/03/22 Unknown Rx Allergies Allergy/AdvReac Type Severity Reaction Status Date / Time No Known Allergies Allergy Verified 05/10/22 08:50 ED Review of Systems ROS: Stated complaint: CHEST PAIN Other details as noted in HPI Comment: All other systems reviewed and negative Constitutional: denies: chills, fever Respiratory: shortness of breath. denies: cough, wheezing Cardiovascular: chest pain Gastrointestinal: denies: abdominal pain, nausea, diarrhea Genitourinary: denies: urgency, dysuria, discharge Musculoskeletal: arthralgia Skin: denies: rash, lesions Neurological: denies: headache, weakness, paresthesias Psychiatric: denies: anxiety, depression ED Past Medical Hx - Past Medical History Hx Hypertension: Yes Hx Arthritis: Yes - Surgical History Hx Cholecystectomy: Yes Hx Appendectomy: Yes Additional Surgical History: colon surgery - Social History Smoking Status: Never Smoker Substance Use Type: Alcohol - Medications Home Medications: Home Medications Medication Instructions Recorded Confirmed Last Taken Type Chlorhexidine Mouthwash [Peridex] 15 ml MM BID #1 bottle 01/03/22 Unknown Rx Clindamycin [Clindamycin CAP] 300 mg PO Q8H #30 cap 01/03/22 Unknown Rx ED Physical Exam - General Limitations: No Limitations General appearance: alert, in no apparent distress - Head Head exam: Present: atraumatic, normocephalic - Neck Neck exam: Present: normal inspection - Respiratory Respiratory exam: Present: normal lung sounds bilaterally. Absent: respiratory distress - Cardiovascular Cardiovascular Exam: Present: regular rate, normal rhythm, normal heart sounds - GI/Abdominal GI/Abdominal exam: Present: soft. Absent: distended, tenderness - Rectal Rectal exam: Present: deferred - Back Exam Back exam: Present: paraspinal tenderness. Absent: muscle spasm, vertebral tenderness - Neurological Exam Neurological exam: Present: alert, oriented X3 - Psychiatric Psychiatric exam: Present: normal affect, normal mood - Skin Skin exam: Present: warm, dry, intact, normal color ED Course Vital Signs 05/10/22 05/10/22 05/10/22 08:49 10:14 10:15 Temperature 98.7 F Pulse Rate 88 Respiratory 18 Rate Blood Pressure 182/68 182/68 Blood Pressure 179/78 [Left] O2 Sat by Pulse 97 96 Oximetry 05/10/22 10:30 Temperature Pulse Rate 77 Respiratory 32 H Rate Blood Pressure 182/68 Blood Pressure [Left] O2 Sat by Pulse 100 Oximetry ED Medical Decision Making - Lab Data Result diagrams: 05/10/22 08:54 05/10/22 08:54 - EKG Data -: EKG Interpreted by Ma EKG shows normal: sinus rhythm, axis, intervals, QRS complexes, ST-T waves Rate: normal - Medical Decision Making CBC grossly unremarkable. On chemistry there is a mild hypokalemia of 3.2. Patient was given oral replacement. Urinalysis sample appears reddish-brown in color. Will obtain CK. Signed out at shift change to Dr. Butt for follow-up UA, CK and disposition. Critical care attestation.: If time is entered above; I have spent that time in minutes in the direct care of this critically ill patient, excluding procedure time. ED Disposition Condition: Stable Referrals: DALILA NOYOLA NP [Primary Care Provider] - 3-5 Days
[2022-05-10 16:18] LABS: Hyaline Casts,Urine 1 /LPF; Mucus,Urine 3+ /HPF
[2022-05-10 16:28] LABS: Bilirubin,Urine 1+ (Negative); Color,Urine Amber (Yellow)
[2022-05-10 16:29] LABS: Blood,Urine Negative (Negative); Ictotest,Urine Positive (Negative)
[2022-05-10] MEDS ORDERED: POTASSIUM CHLORIDE ER 20 MEQ TAB PO ONE (16:36)
[2022-05-10] MEDS ORDERED: cloNIDine 0.2 MG TAB PO ONE (17:29)
[2022-05-10 18:14] VITALS: BP 187/77
--- NOTE | 2022-05-10 18:49 | Electrocardiograph Report ---
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
== END 2022-05-10 18:13 | disposition home or self-care (01) ==
LOC: ED 08:37
DX: M54.50 Low back pain, unspecified (principal); M25.511 Pain in right shoulder; R06.00 Dyspnea, unspecified; I10 Essential (primary) hypertension; M19.90 Unspecified osteoarthritis, unspecified site; Z90.49 Acquired absence of other specified parts of digestive tract
CPT/HCPCS: 36415; 71046; 80053; 81001; 82550; 84484; 85025; 87086; 93005; 96374; 96375; 99284; J1100; J3360